=== PATIENT | female | born 1990 | race Caucasian/White ===

== ENCOUNTER 2019-12-01 02:10 | Outpatient (CLI) | payer OTHER, SELFPAY ==
[2019-12-04 15:50] LABS: AFP 59.8 ng/mL; Calculated age at EDD 31 years; Cigarette smoking status non-Smoker; GA used in risk estimate Scan estimate; IVF Pregnancy No; Initial or repeat testing Initial testing; Insulin dependent diabetes No; Maternal Weight 184 lbs; Number of Fetuses 1; Physician Phone Number 802-748-7300; Prev Pregnancy w/NTD No; RECOMMENDED FOLLOW UP None.; Results Summary Normal risk
== END 2019-12-01 02:30 ==
PROVIDERS: Advanced Practice Midwife; Visit Provider Advanced Practice Midwife
DX: Z34.92 Encounter for supervision of normal pregnancy, unspecified, second trimester (principal); Z36.89 Encounter for other specified antenatal screening
CPT/HCPCS: 36415; 82105

== ENCOUNTER 2019-12-01 03:59 | Outpatient (CLI) | payer OTHER, SELFPAY ==
--- NOTE | 2019-12-01 06:15 | DI.US_ITS ---
EXAM: US OB 2-3 TRIMESTER CLINICAL HISTORY: 18 wk anatomy survey,z34.90. TECHNIQUE: Transabdominal obstetrical ultrasound performed. COMPARISON: No exams were available for comparison FINDINGS: Transabdominal obstetrical ultrasound performed. FINDINGS: Number of fetuses: One. position: Variable. heart rate: 144 bpm. Placental location: Fundal no evidence of previa. BIOMETRIC DATA: EFW: 251 grms Composite Age: 18 weeks 4 days EDC: 04/29/2020 Heart Rate: 144BPM Amniotic fluid index: Amount of fluid is within normal limits. ANATOMICAL SURVEY: Within normal limits. BPD: 4.1cm HC: 15.7cm AC: 13.4cm FL: 2.8cm Cisterna Magna: 3.6 mm Cerebellum: 1.8 cm IMPRESSION: 1. Single live intrauterine gestation as above. 2. No abnormalities identified sonographically on the anatomic survey. DATA REPOSITORY:
== END 2019-12-01 04:19 ==
PROVIDERS: Visit Provider Advanced Practice Midwife
DX: Z34.92 Encounter for supervision of normal pregnancy, unspecified, second trimester (principal)
CPT/HCPCS: 76805

== ENCOUNTER 2020-02-05 03:21 | Outpatient (CLI) | payer OTHER, SELFPAY ==
[2020-02-05 15:06] LABS: Glucose,1 Hr (Glucola) 130 mg/dL (80-140)
[2020-02-05 15:12] LABS: HCT 35.7 % (36.0-46.0); HGB 11.8 g/dL (11.2-15.7); MCH 29.5 pg (27.0-33.0); MCHC 33.1 % (32.0-36.0); MCV 89.3 fL (80-95); MPV 9.9 fL (8.0-11.0); Platelet Count 310 10^3/uL (130-400); RDW 13.3 % (11.7-14.6); RDW-SD 43.4 fL; WBC 12.69 10^3/uL (4.4-10.8)
== END 2020-02-05 03:41 ==
PROVIDERS: Visit Provider Advanced Practice Midwife
DX: Z34.93 Encounter for supervision of normal pregnancy, unspecified, third trimester (principal); Z3A.28 28 weeks gestation of pregnancy
CPT/HCPCS: 82950; 85027; 86850; 86900; 86901

== ENCOUNTER 2020-04-04 11:08 | Outpatient (CLI) | payer OTHER, MEDICAID, SELFPAY ==
[2020-04-04 11:10] VITALS: BP 131/87; PULSE 83; TEMP 37
[2020-04-04 11:15] VITALS: BP 131/87; PULSE 83; TEMP 37
[2020-04-04 11:35] VITALS: BP 131/87; PULSE 83
[2020-04-04 12:37] VITALS: BP 151/95; PULSE 81
[2020-04-04 13:09] LABS: HCT 36.8 % (36.0-46.0); HGB 12.3 g/dL (11.2-15.7); MCH 29.2 pg (27.0-33.0); MCHC 33.4 % (32.0-36.0); MCV 87.4 fL (80-95); MPV 10.9 fL (8.0-11.0); Platelet Count 313 10^3/uL (130-400); RBC 4.21 10^6/uL (3.93-5.22); RDW 13.3 % (11.7-14.6); RDW-SD 42.3 fL; WBC 13.63 10^3/uL (4.4-10.8)
[2020-04-04 13:25] LABS: PROTEIN < 6.0 mg/dL
[2020-04-04 13:25] LABS: ALT 10 U/L (14-59); AST 10 U/L (15-37); Albumin 2.5 g/dL (3.4-5.0); Alkaline Phosphatase 120 U/L (46-116); Anion Gap 9.8 mmol/L (3-11); BUN 7 mg/dL (7-18); Bilirubin, Total 0.2 mg/dL (0.2-1.0); CO2 23.2 mmol/L (21.0-32.0); CREATININE 0.8 mg/dL (0.55-1.02); Calcium 9.4 mg/dL (8.5-10.1); Chloride 102 mmol/L (98-107); Glucose 85 mg/dL (74-106); Potassium 3.9 mmol/L (3.5-5.1); Sodium 135 mmol/L (136-145); Total Protein 6.8 g/dL (6.4-8.2); Uric Acid 4.8 mg/dL (2.6-6.0)
--- NOTE | 2020-04-04 13:25 | W.OBNST ---
Date of service: 04/04/20 Time of Service: 13:27 NST Evaluation Reason for NST Reasons for Nonstress Test: GESTATIONAL HYPERTENSION Gestational Age Gestational Age in Weeks and Days: 36 Weeks and 3Days Test and Monitor Explained Test/Monitor Explained: Test Explained, Monitor Explained and Patient Verbalized Understanding Vital Signs Blood Pressure: 131/87 Pulse: 83 Temperature: 98.6 F NST Information Date on Monitor: 04/04/20 Time on Monitor: 11:10 Date off Monitor: 04/04/20 Time off Monitor: 13:10 Total Time on Monitor: 120 NST Interventions: PO Hydration NST Evaluation Patient States Movement: Present FHR Baseline: 140 Variability: Moderate 6-25 bpm Accelerations: 15x15 Decelerations: None NST Results: Reactive Note NST Note Note: NST done following office visit today due to elevated BP times 2. Highest BP in office 136/90. Denies symptoms. Pre-eclampsia labs drawn and are pending. NST is reactive and reassuring, CAT I baseline 140's. If labs are normal will discharge to home to follow up in 1 week in office Have reviewed signs and symptoms of pre-eclamspia and patient verbalizes understanding. NST Reviewed and Verified by: Zuleika Anna
[2020-04-04 13:27] VITALS: BP 131/87; PULSE 83; TEMP 37
[2020-04-04 13:27] LABS: COMMENT (LAB VIEW ONLY) 42.95 mg/dL
== END 2020-04-04 14:00 ==
LOC: BCD 11:09 → OBS 11:14
PROVIDERS: Advanced Practice Midwife; Visit Provider Advanced Practice Midwife
DX: O13.3 Gestational [pregnancy-induced] hypertension without significant proteinuria, third trimester (principal); Z3A.36 36 weeks gestation of pregnancy
CPT/HCPCS: 59025; 36415; 80053; 85027; 82565; 84156; 84550; 87081

== ENCOUNTER 2020-04-12 16:37 | Outpatient (REF) | payer OTHER, MEDICAID, SELFPAY ==
[2020-04-12 17:52] LABS: *AMPHETAMINES SCREEN URINE Negative (Negative); *BARBITURATES SCREEN URINE Negative (Negative); *BENZODIAZEPINES SCREEN URINE Negative (Negative); Cannabinoids THC Negative (Negative); Cocaine Screen,Urine Negative (Negative); METHADONE URINE SCREEN Negative (Negative); OPIATES URINE SCREEN Negative (Negative)
[2020-04-12 18:39] LABS: Tricyclic Antidepressants Negative (Negative)
[2020-04-19 06:44] LABS: Buprenorphine Negative ng/mL (Cutoff: 5.0); Norbuprenorphine Negative ng/mL (Cutoff: 2.5)
== END 2020-04-12 16:38 | disposition home or self-care (01) ==
LOC: LBN 16:37
PROVIDERS: Visit Provider Advanced Practice Midwife
DX: Z34.93 Encounter for supervision of normal pregnancy, unspecified, third trimester (principal)
CPT/HCPCS: 80307

== ENCOUNTER 2020-04-29 11:13 | Observation (INO) | payer OTHER, MEDICAID, SELFPAY ==
[2020-04-29] VITALS (8 sets, daily range): BP systolic 136–154; BP diastolic 83–104; PULSE 79–96; TEMP 36.6
[2020-04-29 10:19] LABS: HCT 38.6 % (36.0-46.0); HGB 12.6 g/dL (11.2-15.7); MCH 28.7 pg (27.0-33.0); MCHC 32.6 % (32.0-36.0); MCV 87.9 fL (80-95); MPV 10.6 fL (8.0-11.0); Platelet Count 315 10^3/uL (130-400); RBC 4.39 10^6/uL (3.93-5.22); RDW 13.6 % (11.7-14.6); RDW-SD 43.6 fL; WBC 13.11 10^3/uL (4.4-10.8)
[2020-04-29 10:32] LABS: ALT 8 U/L (14-59); AST 8 U/L (15-37); Albumin 2.5 g/dL (3.4-5.0); Alkaline Phosphatase 131 U/L (46-116); BUN 6 mg/dL (7-18); Bilirubin, Total 0.2 mg/dL (0.2-1.0); CREATININE 0.8 mg/dL (0.55-1.02); Calcium 8.7 mg/dL (8.5-10.1); Chloride 102 mmol/L (98-107); Glucose 102 mg/dL (74-106); Potassium 4.1 mmol/L (3.5-5.1); Sodium 135 mmol/L (136-145); Total Protein 6.6 g/dL (6.4-8.2); Uric Acid 5.8 mg/dL (2.6-6.0)
[2020-04-29 11:12] LABS: PROTEIN < 6.0 mg/dL
[2020-04-29 11:13] LABS: COMMENT (LAB VIEW ONLY) 28.38 mg/dL
--- NOTE | 2020-04-29 11:14 | W.OBNST ---
Date of service: 04/29/20 Time of Service: 11:14 NST Evaluation Reason for NST Reasons for Nonstress Test: GESTATIONAL HYPERTENSION Gestational Age Gestational Age in Weeks and Days: 40 Weeks and 0Days Test and Monitor Explained Test/Monitor Explained: Test Explained, Monitor Explained and Patient Verbalized Understanding Vital Signs Blood Pressure: 144/100 Pulse: 87 Temperature: 97.9 F NST Information Date on Monitor: 04/29/20 Time on Monitor: 09:06 NST Evaluation Patient States Movement: Present FHR Baseline: 150 Variability: Moderate 6-25 bpm Accelerations: 15x15 Decelerations: None NST Results: Reactive Note NST Note NST Reviewed and Verified by: Scarlett Rosales
--- NOTE | 2020-04-29 12:32 | HPE_ITS ---
Date of service: 04/29/20 Time of Service: 12:32 Assessment and Plan Assessment and plan (1) Elevated blood pressure affecting in third trimester, antepartum: Status: Acute Assessment and plan: A: primipara, 40 wek EGA gestational HTN without severe features reactive NST P: Will admit pt later today for IOL via cervical ripening Consult with Dr. Brandon (2) History of anxiety: Status: Acute OB-HPI Labor/Delivery History of Present Illness Reason for Visit: R/O GESTATIONAL HTN Chief Complaint: Signs/Symptoms Gestational HTN , Associated Signs and Symptoms of GestationalHTN: elevated BP noted during office visit today, pt to for serial BP's, NST and labs. Pt denies WHITE or abd pain, no nausea or vomiting.. HANDY Calculator Estimated Delivery Date Method Current WG Current Estimate 04/29/20 Ultrasound #1 40w 0d History of Present Expected Delivery Route/Plan - CNM FOB/ - Perry Whitley (first child) Doesn't want to know gender, Bam if boy, Birdie if girl If a boy, yes to circ considering nitrous oxide, hopes to avoid epidural if possible GBS negative Interested in immediate Nexplanon Specific Issues/Plan 1. Hx PCOS/Infertility -Metformin started & conception occurred, on metformin until 12 weeks, early GTT at 14 cumum=440 1a. 1-hr GTT 130 2. lab results noted in first PN narrative note below 3. Single marker AFP = low risk for NTD 4. Elevated BP affecting care of Mother in third trimester, NST and pre- eclampsia labs 04/04/20 4a. Labs were nml, BP at 39 wk check is nml, no sx Review of Systems All systems reviewed & are unremarkable except as noted in HPI and below Constitutional Constitutional: Reports as per HPI and Reports system reviewed and no additional complaints, except as documented PFS Medical History (Updated 04/04/20 @ 11:02 by Zuleika Anna CNM) Essential hypertension Diagnosed 2018 - resolved with weight loss History of anxiety no meds or counseling Irregular menstruation, unspecified (09/05/13) PCOS (polycystic ovarian syndrome) Surgical History (Updated 11/20/19 @ 13:18 by Zuleika Hanna CNM) History of hip surgery Family History (Updated 09/14/20 @ 13:29 by Zuleika Hanna CNM) Mother Hypothyroid Kidney disease Father Hypertension Myocardial infarct stent placed Maternal Grandmother Diabetes Maternal Grandfather Heart disease Paternal Grandmother Heart disease Social History Smoking risk assessment performed?: No History History 1 Para 0 Hx # Term Pregnancies 0 Multiple births 0 Hx # Pregnancies 0 Ectopic pregnancies 0 AB induced 0 Hx Number of Living Children 0 AB spontaneous 0 Meds Home Medications and Allergies Home Medications Medication Instructions Recorded Confirmed Type acetaminophen 500 mg capsule 500 mg PO Q6H PRN 11/22/19 03/20/20 History prenat.vits,amira,sbn-gokg-evsbs 1 tab PO DAILY 11/22/19 03/20/20 History ferrous sulfate 325 mg (65 mg 325 mg PO DAILY #30 tab 01/24/20 03/20/20 Rx iron) tablet Allergies Allergy/AdvReac Type Severity Reaction Status Date / Time No Known Drug Allergies Allergy Unverified 04/29/20 08:24 Exam Physical Exam Vital signs: Pulse BP 94 H 154/104 H 04/29/20 11:11 04/29/20 11:11 Vital Signs Reviewed: Yes Notable Details: elevated BP's while in BC x4 Constitutional Constitutional: no acute distress Detailed Labor and Delivery Exam Dilation: 0.5 Effacement (%): 50 station: -3 Cervix position: posterior Consistency: soft Stacy Score: Cervical Points Exam 0 1 2 3 Dilation Closed 1-2cm 3-4 cm 5-6cm Effacement 0-30% 40-50% 60-70% 80% Consistency Firm Medium Soft Station -3 -2 -1,0 +1,+2 Position Posterior Mid Anterior STACY Score(Cervical Ripeness Score): 3 Amniotic Membrane Status: Intact Fetus A Heart Rate Baseline: 140 Monitor Accelerations: 15 X 15 Monitor Decelerations: None Variability: Moderate (6-25 BPM) Presentation: Cephalic Categories: Category I HEENT Exam HEENT Exam: Normal Neck Exam Neck Exam: Normal Chest/Brest/Axilla Exam Chest Exam: Normal Breast Exam Breast Exam: Normal Respiratory Exam Respiratory Exam: Normal Cardiovascular Exam Cardiovascular Exam: Normal Abdominal Exam Abdominal Exam: Normal Rectal Exam Rectal Exam: Not Done Exam Exam: Normal Back/Spine/Pelvis Exam Back Exam: Normal Skin Exam Skin Exam: Normal Neurological Exam Neurological Exam: Normal Psychiatric Exam Psychiatric Exam: Normal (anxious) Results Abnormal Lab Findings: Abnormal Labs 04/29/20 04/29/20 10:08 10:08 WBC 13.11 H Sodium 135 L BUN 6 L AST 8 L ALT 8 L Alkaline Phosphatase 131 H Albumin 2.5 L Risk Assessment Risk for Shoulder Dystocia Historical/Initial OB: NEGATIVE FOR: Pelvic Abnormality, Pre- BMI>30, Previous Shoulder Dystocia or Previous Macrosomia Increased Risk?: No Risk for Pre-Eclampsia Daily Dose ASA Indicated: No Yes, if one or more: NEGATIVE FOR: Hx Pre-E/Gest HTN, Chronic HTN, Multiple Gestation, Pre-gestational DM, Renal Disease, Systemic Lupus or APA Syndrome Yes, if 2 or more: POSITIVE FOR: Nulliparity; NEGATIVE FOR: Age>= 35 yrs, >10yr btwn pregnancies, BMI>30, ethinicty, Mother/Sister w/ Pre-E or Previous IUGR Risk for Post- Hemorrhage Initial: NEGATIVE FOR: Multiple Gestation, Previous PPH, Known Clotting Deficiency, Grand Multiparity or Anticoagulation At Risk?: No Risks Reviewed Risks Reviewed Upon Admission: Yes
== END 2020-04-29 12:30 | disposition home or self-care (01) ==
LOC: OBS 12:10 → BCD 12:39
PROVIDERS: Admitting Provider Advanced Practice Midwife; Visit Provider Advanced Practice Midwife
DX: O13.3 Gestational [pregnancy-induced] hypertension without significant proteinuria, third trimester (principal); O99.343 Other mental disorders complicating pregnancy, third trimester; Z3A.40 40 weeks gestation of pregnancy; O99.283 Endocrine, nutritional and metabolic diseases complicating pregnancy, third trimester; E28.2 Polycystic ovarian syndrome
CPT/HCPCS: 59025; 36415; 80053; 85027; 86850; 86900; 86901; 99211; 82565; 84156; 84550; G0378

== ENCOUNTER 2020-04-29 15:00 | Inpatient (IN) | payer OTHER, MEDICAID, SELFPAY ==
[2020-04-29 15:13] VITALS: BP 126/85; PULSE 116; RESP 18; TEMP 36.7
[2020-04-29] MEDS: miSOPROStol 25 MCG TAB 50 MCG PO ×2 (15:42→20:03)
[2020-04-29 16:49] LABS: Influenza A PCR Negative (Negative); Influenza B PCR Negative (Negative); RSV PCR Negative (Negative)
[2020-04-29 16:56] LABS: COVID-19 PCR Negative (Negative)
[2020-04-29 17:24] VITALS: BP 135/91; PULSE 90; RESP 18; TEMP 36.8
[2020-04-29 19:38] VITALS: BP 118/67; PULSE 99; RESP 18; TEMP 36.6
--- NOTE | 2020-04-29 20:30 | W.PM.OBNL1 ---
Date of service: 04/29/20 Time of Service: 20:30 Informed Consent Informed Consent: Induction of Labor and Risk,Benefits,Alternatives Discussed Pelvic Exam Dilation: 1 Effacement (%): 80 station: -2 Cervix Position: mid Consistency: soft Vaginal Exam Presentation: Cephalic Contractions Monitor Mode: External Contraction Frequency(min): irregular Intensity: Mild Fetus A Monitor: External (US) Heart Rate Baseline: 145 Presentation: Cephalic Variability: Moderate (6-25 BPM) Categories: Category I Accelerations: 15 X 15 Decelerations: None Amniotic Membrane Status: Intact Assessment and Plan Assessment and plan (1) Elevated blood pressure affecting in third trimester, antepartum: Status: Acute (2) Elective induction of labor planned: Status: Acute Assessment and plan: A: Primipara, IOL via cervical ripening Gestational HTN, stable Latent phase, tolerating PO fluids well P: 2nd dose of misoprostel 25 mcg now Will hold further doses for the night Expectant management Anticipate (3) 40 weeks gestation of : Status: Acute Objective Temp Pulse Resp BP 97.9 F 99 H 18 118/67 04/29/20 19:38 04/29/20 19:38 04/29/20 19:38 04/29/20 19:38 Laboratory Results COVID-19 Source Nasopharyx 04/29/20 15:30 SARS-CoV-2 (PCR) Negative (Negative) 04/29/20 15:30 Influenza Type A (PCR) Negative (Negative) 04/29/20 15:30 Influenza Type B (PCR) Negative (Negative) 04/29/20 15:30 RSV (PCR) Negative (Negative) 04/29/20 15:30 Vital Signs Reviewed: Yes Objective Narrative Objective Narrative: Normotensive, afebrile FOB at bedside for support Category 1 tracing Minor cervical change palpable to 1/80% vtx -2 Subjective Interval history since last seen: lower abd cramps with back pain, not consistent, position changes help Interventions Induction Indication: Gestational Hypertension , Type of Induction: Misoprostol administration: Oral , Procedure Procedures: Cervical Ripening Cervical Ripening: Misoprostol
[2020-04-29] MEDS: Fluconazole 100 MG TAB 150 MG PO (21:19)
[2020-04-29 22:01] VITALS: BP 139/91; PULSE 88; RESP 18
[2020-04-30] VITALS (40 sets, daily range): BP systolic 78–147; BP diastolic 43–96; PULSE 0–180; RESP 18–20; TEMP 36.6–37; O2SAT 97–100
--- NOTE | 2020-04-30 03:39 | W.PM.OBNL1 ---
Date of service: 04/30/20 Time of Service: 03:40 Pelvic Exam Dilation: 2 Effacement (%): 90 station: -2 Cervix Position: mid Consistency: soft Vaginal Exam Presentation: Cephalic Pooling: Positive Contractions Monitor Mode: External Contraction Frequency(min): doubling every 5-7 minutes Intensity: Mild/Moderate Fetus A Monitor: External (US) Heart Rate Baseline: 135 Variability: Moderate (6-25 BPM) Categories: Category I Accelerations: 15 X 15 Decelerations: Early Amniotic Membrane Status: Ruptured Rupture Method: Spontaneous Amniotic Fluid: Clear Amount: large Date of Membrane Rupture: 04/30/20 Time of Membrane Rupture: 03:00 Assessment and Plan Assessment and plan (1) 40 weeks gestation of : Status: Acute (2) Elective induction of labor planned: Status: Acute Assessment and plan: A: IOL for Gest HTN Latent phase labor @ 1-2 cm dilation, SROM Category 1 tracing Good maternal coping though anxious P: Pt offered nitrous, Discussed R&B regional anesthesia when labor increases to active phase Expectant management, comfort measures as needed (3) Elevated blood pressure affecting in third trimester, antepartum: Status: Acute Objective Vital Signs Reviewed: Yes Objective Narrative Objective Narrative: Category 1 tracing SROM clear confirmed visually Minimal cervical change at this time Pt breathing well with contractions, expresses anxiety about pain BP stable, running 13-140's over 80's- 90's Subjective Interval history since last seen: Was relaxing and drifting off to sleep when she felt a pop and water began coming out, contractions since then have been stronger
[2020-04-30] MEDS: Lactated Ringers 500 ML IV (05:20)
[2020-04-30] MEDS: fentaNYL 100 MCG/2 ML VIAL 25 MCG IVP (06:10)
[2020-04-30] MEDS: fentaNYL 100 MCG/2 ML VIAL EP (06:40)
[2020-04-30] MEDS: Bupivacaine 0.25% Pres-Free 10 ML VIAL EP (06:41)
[2020-04-30] MEDS: FentaNYL/ROPIvacaine 2 mcg/ml and 0.1% 200 ML CADD Cassette EP (06:56)
[2020-04-30] MEDS: Oxytocin/Normal Saline 30 UNIT/500 ML BAG 2 UNITS IV (07:34)
[2020-04-30] MEDS: Lactated Ringers 1,000 ML 125 ML IV (07:34)
--- NOTE | 2020-04-30 09:46 | W.PM.OBNL1 ---
Date of service: 04/30/20 Time of Service: 09:46 Pelvic Exam Dilation: 6 Effacement (%): 100 station: -1 Position: ROP Cervix Position: anterior Consistency: soft Vaginal Exam Presentation: Cephalic Contractions Monitor Mode: External Contraction Frequency(min): every 2-4 minutes Contraction Duration(sec): 60-80 seconds Intensity: Moderate/Strong Fetus A Monitor: External (US) Heart Rate Baseline: 135 Presentation: Cephalic Variability: Moderate (6-25 BPM) Categories: Category I Accelerations: 15 X 15 Decelerations: Early Recurrence: Intermittent Amniotic Membrane Status: Ruptured Rupture Method: Spontaneous Amniotic Fluid: Clear Date of Membrane Rupture: 04/30/20 Time of Membrane Rupture: 03:00 Assessment and Plan Assessment and plan (1) Elevated blood pressure affecting in third trimester, antepartum: Status: Acute (2) Elective induction of labor planned: Status: Acute Assessment and plan: A: Active labor, primipara Gest HTN, stable Epidural anesthesia Pitocin augmentation P: Continue current management Dr. Madison updated on current status Anticipate Objective Vital Signs Reviewed: Yes Objective Narrative Objective Narrative: BP's remain stable Pt pleased with epidural Category 1 tracing, clear fluid Cvx change to 6/100% vtx ROP @ -1 Subjective Patient Reports: No new Complaints Interval history since last seen: Comfortable with epidural
--- NOTE | 2020-04-30 11:14 | W.PM.OBNL1 ---
Date of service: 04/30/20 Time of Service: 11:14 Informed Consent Informed Consent: Induction of Labor and Risk,Benefits,Alternatives Discussed Pelvic Exam Dilation: 10 station: +2 Position: REDD Contractions Monitor Mode: External Intensity: Moderate/Strong Fetus A Monitor: External (US) Heart Rate Baseline: 150 Presentation: Cephalic Variability: Moderate (6-25 BPM) Categories: Category II Decelerations: Variable Recurrence: Recurrent Amniotic Membrane Status: Ruptured Assessment and Plan Assessment and plan (1) Elective induction of labor planned: Status: Acute Assessment and plan: A: 2nd stage labor Category 2 tracing due to variable decels P: FSE placed, Dr. Madison notified of tracing category change 2nd stage huddle held, begin maternal pushing efforts Objective Vital Signs Reviewed: Yes Subjective Interval history since last seen: increasing vaginal and rectal pressure
[2020-04-30] MEDS: Oxytocin/Normal Saline 30 UNIT/500 ML BAG 95 UNITS IV (12:00)
--- NOTE | 2020-04-30 12:23 | W.PM.OBNL1 ---
Date of service: 04/30/20 Time of Service: 11:20 Fetus A Monitor: External (US) Heart Rate Baseline: 160 Presentation: Cephalic Variability: Moderate (6-25 BPM) Categories: Category II Decelerations: Variable (to 65 bpm rogelio) Recurrence: Recurrent Amniotic Membrane Status: Ruptured Assessment and Plan Assessment and plan (1) Elective induction of labor planned: Status: Acute Assessment and plan: A: 2nd stage with delivery not imminent ROT/REDD @ +3, directly behind pubic arch Maternal pushing efforts are strong, epidural in effect Category 2 tracing with recurrent deep variables P: Dr. Madison paged to room to evaluate for operative delivery Objective Vital Signs Reviewed: Yes Objective Narrative Objective Narrative: epidural fairly dense, pt can feel increase in pressure when contraction begins category 2 tracing, deep variables with each contraction to rogelio of 60's Fetus in ROT/REDD position behind pubic arch, delivery not imminent
--- NOTE | 2020-04-30 12:56 | W.OBDELIVERY ---
Date of service: 04/30/20 Time of Service: 12:56 OB Labor/ Delivery Information Providers Doctor: Rubi Madison Nurse General Studies Program Chair: Scarlett Rosales Knitting Machine Operator Helper: Jane Cole Nurse: Azalea Alcaraz Nurse: Law Vincent Labor/Delivery Information Number of Babies in Womb: 1 Steroids Given: None Reason Steroids Not Administered: N/A Group Beta Strep: Negative Rubella Status: Immune Blood Type: A+ Varicella Immunity: Immune Shoulder Dystocia: No Note: Kindly asked by Scarlett Rosales CNM to evaluate labor progress of this 30-year-old primigravida. She had been induced with cervical ripening with misoprostol for gestational hypertension. Spontaneous rupture of membranes for clear fluid approximately 3 AM. She progressed through a normal course of labor and received epidural for pain control. She was completely dilated and pushing with adequate maternal effort. There is noted to be deep decelerations of the heart rate to the 60s after scalp lead placement with contractions. These are somewhat prolonged into approximately the 2-minute range with good return to baseline and moderate variability. On evaluation, she was noted to be complete and +2 station with the vertex in the right occiput anterior position. Due to maternal pushing efforts and repetitive decelerations decision was made for vacuum-assisted vaginal delivery. Verbal consent was obtained. Her bladder was drained for approximately 100 cc of clear yellow urine. Initial vacuum placement was with acutely and with maternal effort maximum pressure of 20 mmHg and the vacuum device was used. With good maternal effort there was noted to be 1 pop off. Evaluation of heart rate after this maternal pushing effort, heart rate was noted to be in the 160s with moderate variability. She continued to have somewhat deep decelerations with contraction efforts over approximately 6 additional contractions. At this point as the vertex was noted again vacuum device was placed at a maximum pressure of 20 mmHg. With good maternal effort the vertex was delivered underneath the pubic arch and released from pressure. Shoulders followed with ease. There is no evidence of nuchal cord noted and three-vessel cord is noted and the was handed off to the waiting mother and father. At this point after cord pulsations had diminished, cord was clamped, cut and cord blood sample and cord blood gases were both obtained. Placenta delivered spontaneously and was found to be intact. As of note there was a approximately 50 cc dark adherent clot to the lateral aspect of the placenta which may have indicated a marginal placental abruption. Patient received Pitocin for uterine tonicity. On inspection of the perineum, vagina, and cervix are noted to be a right and left vaginal sidewall laceration which were repaired with 3-0 Vicryl suture in a running locked fashion and found to be hemostatic. The perineum was intact. There is no evidence of cervical laceration. Lower uterine segment was swept clear of all clot and debris and the uterus was firm and approximately 2 cm below the umbilicus postdelivery. Findings of the delivery and maternal efforts along with vacuum assistance were all explained to the patient and her after delivery. is in stable condition resting comfortably skin to skin with mom. Weight and Apgars to follow. Stages of Labor ROM Baby A: 04/30/20 ROM Baby A: 03:00 ROM Total Time- Baby A: [id number] Infant Delivery Date-Baby A: 04/30/20 Infant Delivery Time-Baby A: 11:51 Placenta Delivery Date-Baby A: 04/30/20 Placenta Delivery Time-Baby A: 11:58 Labor-Stage 3 Duration: 7 minutes Placenta Cultured: No Placenta Status: Delivered Baby A Gender: Female Gestational Status: Term (39-41.6 wks) Gestational Age in Weeks/Days: 40 Weeks and 1 Days Score-1 Minute Interval(Baby A) Heart Rate-1 minute: 100 BPM or Greater Respiratory Effort- 1 minute: Spontaneous/Strong Cry Muscle Tone-1 minute: Active Movement Reflex Response-1 minute: Prompt Response Color-1 minute: Pallor or Cyanosis Total Score-1 minute: 8 Score-5 Minute Interval(Baby A) Heart Rate- 5 minute: 100 BPM or Greater Respiratory Effort-5 minute: Spontaneous/Strong Cry Muscle Tone-5 minute: Active Movement Reflex Response-5 minute: Prompt Response Color-5 minute: Bluish Hands or Feet Total Score- 5 minute: 9
[2020-04-30] MEDS: Docusate Sodium 100 MG CAP PO (18:04)
[2020-04-30] MEDS: Ibuprofen 600 MG TAB PO (18:04)
[2020-04-30] MEDS: Acetaminophen 325 MG TAB 650 MG PO (18:04)
[2020-05-01 04:00] VITALS: BP 115/78; PULSE 88; RESP 18; TEMP 36.7
[2020-05-01 06:31] VITALS: BP 147/84; PULSE 88; RESP 18
[2020-05-01 06:44] LABS: HCT 31.5 % (36.0-46.0); HGB 10.3 g/dL (11.2-15.7); MCH 28.9 pg (27.0-33.0); MCHC 32.7 % (32.0-36.0); MCV 88.5 fL (80-95); MPV 10.5 fL (8.0-11.0); Platelet Count 272 10^3/uL (130-400); RBC 3.56 10^6/uL (3.93-5.22); RDW 13.8 % (11.7-14.6); RDW-SD 44.4 fL; WBC 17.22 10^3/uL (4.4-10.8)
[2020-05-01] MEDS: Acetaminophen 325 MG TAB 650 MG PO ×2 (08:23→14:26)
[2020-05-01 08:30] VITALS: BP 116/78; PULSE 87; RESP 18; TEMP 36.8
--- NOTE | 2020-05-01 09:39 | W.PM.OBPNV1 ---
Date of service: 05/01/20 Time of Service: 09:39 Assessment and Plan Assessment and plan (1) care following vaginal delivery: Status: Acute Assessment and plan: continue present management, likely to be discahrged to home tomorrow.JORJE (2) Status post vacuum-assisted vaginal delivery: Status: Acute Assessment and plan: doing well. JORJE Subjective Subjective Interval history: Patient reported to [facility] this morning that she is doing well. Out of bed without difficulty. JORJE Patient comments: Pain well controlled and Tolerating diet [place] baby status: Doing well Exam Physical Exam Vital signs: Temp Pulse Resp BP Pulse Ox 98.2 F 87 18 116/78 100 05/01/20 08:30 05/01/20 08:30 05/01/20 08:30 05/01/20 08:30 04/30/20 23:55 Vital Signs Reviewed: Yes Constitutional Constitutional: no acute distress and obese HEENT Exam HEENT Exam: Normal Neck Exam Neck Exam: Not Done Respiratory Exam Respiratory Exam: Normal Cardiovascular Exam Cardiovascular Exam: Normal Fundal Exam Fundus: Below Umbilicus and Firm Rectal Exam Rectal Exam: Not Done Exam Patient deferred: external exam Perineum: Repair Intact Extremities Exam Extremity Exam: Normal Neurological Exam Neurological Exam: Normal Psychiatric Exam Psychiatric Exam: Normal Results Hemoglobin/Hematocrit: Hgb 10.3 g/dL (11.2-15.7) L D 05/01/20 06:30 Hct 31.5 % (36.0-46.0) L 05/01/20 06:30 Abnormal Lab Findings: Abnormal Labs 05/01/20 06:30 WBC 17.22 H RBC 3.56 L Hgb 10.3 L D Hct 31.5 L
[2020-05-01] MEDS: Ibuprofen 600 MG TAB PO (14:26)
[2020-05-01 20:00] VITALS: BP 119/79; PULSE 79; RESP 18; TEMP 36.7
[2020-05-02] MEDS: Ibuprofen 600 MG TAB PO (07:11)
[2020-05-02 08:00] VITALS: BP 145/91; PULSE 81; RESP 18; TEMP 36.7; O2SAT 99
[2020-05-02 09:06] VITALS: BP 132/90; PULSE 80; RESP 18; O2SAT 98
--- NOTE | 2020-05-02 09:49 | W.PM.OBDISCH ---
Date of service: 05/02/20 Time of Service: 09:49 DS: Diagnosis Discharge Diagnosis (1) care following vaginal delivery: Status: Acute (2) Status post vacuum-assisted vaginal delivery: Status: Acute Discharge Plan Disposition Patient Disposition: HOME Condition: Good Discharge Details Reason For Visit: GESTATIONAL HTN AT 40 WKS Admit Date/Time: 04/29/20 15:00 Admit Provider: Scarlett Rosales Attending Provider: Scarlett Rosales Primary Care Provider: Unknown,Unknown Hospital Course Hospital Course: Vacuum assisted vaginal delivery and routine PP care: [place] as below: Delivery Summary PATIENT NAME: ORALIA PATEL #: [id number] ADMITTING PROVIDER: Rubi MadisonUNT #: [id number] PRIMARY CARE PROVIDER:UNKNOWN,UNKNOWN DATE OF ADMIT: 04/29/20 : 1990 Date of service: 04/30/20 Time of Service: 12:56 OB Labor/ Delivery Information Providers Doctor: Rubi Madison Nurse Archery Equipment Repairer: Scarlett Rosales Co Chairman: Jane Cole Nurse: Azalea Alcaraz Nurse: Law Vincent Labor/Delivery Information Number of Babies in Womb: 1 Steroids Given: None Reason Steroids Not Administered: N/A Group Beta Strep: Negative Rubella Status: Immune Blood Type: A+ Varicella Immunity: Immune Shoulder Dystocia: No Note: Kindly asked by Scarlett Rosales CNM to evaluate labor progress of this 30-year-old primigravida. She had been induced with cervical ripening with misoprostol for gestational hypertension. Spontaneous rupture of membranes for clear fluid approximately 3 AM. She progressed through a normal course of labor and received epidural for pain control. She was completely dilated and pushing with adequate maternal effort. There is noted to be deep decelerations of the heart rate to the 60s after scalp lead placement with contractions. These are somewhat prolonged into approximately the 2-minute range with good return to baseline and moderate variability. On evaluation, she was noted to be complete and +2 station with the vertex in the right occiput anterior position. Due to maternal pushing efforts and repetitive decelerations decision was made for vacuum-assisted vaginal delivery. Verbal consent was obtained. Her bladder was drained for approximately 100 cc of clear yellow urine. Initial vacuum placement was with acutely and with maternal effort maximum pressure of 20 mmHg and the vacuum device was used. With good maternal effort there was noted to be 1 pop off. Evaluation of heart rate after this maternal pushing effort, heart rate was noted to be in the 160s with moderate variability. She continued to have somewhat deep decelerations with contraction efforts over approximately 6 additional contractions. At this point as the vertex was noted again vacuum device was placed at a maximum pressure of 20 mmHg. With good maternal effort the vertex was delivered underneath the pubic arch and released from pressure. Shoulders followed with ease. There is no evidence of nuchal cord noted and three-vessel cord is noted and the was handed off to the waiting mother and father. At this point after cord pulsations had diminished, cord was clamped, cut and cord blood sample and cord blood gases were both obtained. Placenta delivered spontaneously and was found to be intact. As of note there was a approximately 50 cc dark adherent clot to the lateral aspect of the placenta which may have indicated a marginal placental abruption. Patient received Pitocin for uterine tonicity. On inspection of the perineum, vagina, and cervix are noted to be a right and left vaginal sidewall laceration which were repaired with 3-0 Vicryl suture in a running locked fashion and found to be hemostatic. The perineum was intact. There is no evidence of cervical laceration. Lower uterine segment was swept clear of all clot and debris and the uterus was firm and approximately 2 cm below the umbilicus postdelivery. Findings of the delivery and maternal efforts along with vacuum assistance were all explained to the patient and her after delivery. [place] is in stable condition resting comfortably skin to skin with mom. Weight and Apgars to follow. Stages of Labor ROM Baby A: 04/30/20 ROM Baby A: 03:00 ROM Total Time- Baby A: [id number] Delivery Date-Baby A: 04/30/20 Infant Delivery Time-Baby A: 11:51 Placenta Delivery Date-Baby A: 04/30/20 Placenta Delivery Time-Baby A: 11:58 Labor-Stage 3 Duration: 7 minutes Placenta Cultured: No Placenta Status: Delivered Baby A Infant Gender: Female Gestational Status: Term (39-41.6 wks) Gestational Age in Weeks/Days: 40 Weeks and 1 Days Score-1 Minute Interval(Baby A) Heart Rate-1 minute: 100 BPM or Greater Respiratory Effort- 1 minute: Spontaneous/Strong Cry Muscle Tone-1 minute: Active Movement Reflex Response-1 minute: Prompt Response Color-1 minute: Pallor or Cyanosis Total Score-1 minute: 8 Score-5 Minute Interval(Baby A) Heart Rate- 5 minute: 100 BPM or Greater Respiratory Effort-5 minute: Spontaneous/Strong Cry Muscle Tone-5 minute: Active Movement Reflex Response-5 minute: Prompt Response Color-5 minute: Bluish Hands or Feet Total Score- 5 minute: 9 Home Meds and New Rx's Prescriptions: No Action ferrous sulfate [Feosol] 325 mg (65 mg iron) tablet 325 mg PO DAILY Qty: 30 RF: 6 acetaminophen 500 mg capsule 500 mg PO Q6H PRNRF: 0 prenat.vits,amira,[id number] Tablet 1 tab PO DAILY RF: 0 Discharge Instructions Instructions: Hypertension During (GEN), Preeclampsia and Eclampsia After Delivery (GEN) Additional Instructions: will return to office in 1 week for BP check, plan Nexplanon insertion for 2-6 weeks PP. Activity:: Activity as Tolerated Equipment/Supplies:: No Equipment Needed Diet:: As Tolerated Discharge Data Discharge Date/Time-TO BE ENTERED AT DEPARTURE: 05/02/20 09:55 OB:DS Summary Summary Episiotomy Description: None Laceration Description: Sulcus Laceration Extension: Second Degree Contraception Discussed Contraception Discussed: Yes (planning Nexplanon), [place] Infant Gender-Baby A: Female weight: 6 lb 8.764 oz Status at Discharge Functional status at discharge: independent ambulation Overall status at discharge: patient is back to baseline Mental Status: mental status grossly normal Speech and Movement: speech and movement normal Mood: congruent mood Affect: normal affect Exam Physical Exam Vital signs: Temp Pulse Resp BP Pulse Ox 98.1 F 80 18 132/90 98 05/02/20 08:00 05/02/20 09:06 05/02/20 09:06 05/02/20 09:06 05/02/20 09:06 Constitutional Constitutional: no acute distress and obese Comments: feeling well, denies symptoms of PP blues.KH HEENT Exam HEENT Exam: Normal Respiratory Exam Respiratory Exam: Normal Cardiovascular Exam Cardiovascular Exam: Normal Fundal Exam Fundus: Below Umbilicus and Firm Exam Patient deferred: perineal exam Perineum: Normal and Repair Intact Extremities Exam Extremity Exam: Normal Neurological Exam Neurological Exam: Normal Psychiatric Exam Psychiatric Exam: Normal [facility] Medical History (Updated 05/01/20 @ 09:42 by Zuleika Anna CNM) Essential hypertension Diagnosed 2018 - resolved with weight loss History of anxiety no meds or counseling Irregular menstruation, unspecified (09/05/13) PCOS (polycystic ovarian syndrome) Surgical History (Updated 11/20/19 @ 13:18 by Zuleika Hanna CNM) History of hip surgery Family History (Updated 11/20/19 @ 13:29 by Zuleika Hanna CNM) Mother Hypothyroid Kidney disease Father Hypertension Myocardial infarct stent placed Maternal Grandmother Diabetes Maternal Grandfather Heart disease Paternal Grandmother Heart disease Social History Smoking/Tobacco Use Status: Never Smoking risk assessment performed?: Yes Alcohol Intake: former Drug use: Never Substance use type: does not use History History 1 Para 0 Hx # Term Pregnancies 0 Multiple births 0 Hx # Pregnancies 0 Ectopic pregnancies 0 AB induced 0 Hx Number of Living Children 0 AB spontaneous 0 DS: Data Vitals/I&O Vitals and I&O: Vital Signs Temperature 98.1 F 05/02/20 08:00 Pulse 80 05/02/20 09:06 Pulse Rhythm Regular 05/01/20 20:00 Respiratory Rate 18 05/02/20 09:06 Respiratory Depth Normal 04/30/20 23:55 Blood Pressure 132/90 05/02/20 09:06 Blood Pressure Mean 104 05/02/20 09:06 Pulse Oximetry 98 05/02/20 09:06 Oxygen Delivery Method Room Air 04/29/20 15:13 Oxygen Flow Rate 0 04/29/20 15:13 Pain Level 2 05/02/20 08:11 Comment 05/02/20 09:06 Intake & Output 05/01/20 05/01/20 05/02/20 11:59 23:59 11:59 Intake Total 400 / 400 Output Total 900 / 900 Balance -500 / -500 Intake: Oral 400 / 400 Output: Urine 900 / 900 Other: Urine Color Pale
== END 2020-05-02 13:30 | disposition home or self-care (01) | DRG 807 ==
PROVIDERS: Admitting Provider Advanced Practice Midwife; Visit Provider Advanced Practice Midwife
DX: O13.4 Gestational [pregnancy-induced] hypertension without significant proteinuria, complicating childbirth (principal); Z37.0 Single live birth; Z3A.40 40 weeks gestation of pregnancy; O76 Abnormality in fetal heart rate and rhythm complicating labor and delivery
CPT/HCPCS: 85027; J3010; J3490

== ENCOUNTER 2020-07-22 03:19 | Outpatient (CLI) | payer OTHER, MEDICAID, SELFPAY ==
[2020-07-22 13:52] LABS: GTT Comment See Comments
== END 2020-07-22 03:20 | disposition home or self-care (01) ==
LOC: LBO 03:19
PROVIDERS: Visit Provider Obstetrics & Gynecology
DX: E28.2 Polycystic ovarian syndrome (principal)
CPT/HCPCS: 36415; 82951

== ENCOUNTER 2020-12-12 14:20 | Outpatient (REF) | payer OTHER, MEDICAID, SELFPAY | END 2020-12-12 14:21 | disposition home or self-care (01) | LOC: LBN 14:20 | PROVIDERS: Visit Provider Obstetrics & Gynecology | DX: R30.0 Dysuria (principal) | CPT/HCPCS: 87077; 87086; 87186 ==

== ENCOUNTER 2023-11-03 16:23 | Outpatient (REF) | payer BC, SELFPAY | END 2023-11-03 16:24 | disposition home or self-care (01) | LOC: LBN 16:23 | PROVIDERS: Visit Provider Obstetrics & Gynecology | DX: R30.0 Dysuria (principal); N39.0 Urinary tract infection, site not specified | CPT/HCPCS: 87077; 87086; 87186 ==

== ENCOUNTER 2023-12-01 17:34 | Emergency (ER) | payer BC, SELFPAY ==
[2023-12-01 17:36] VITALS: BP 172/93; PULSE 96; RESP 12; TEMP 36.8; O2SAT 98
[2023-12-01 18:16] VITALS: BP 172/93; PULSE 96; RESP 12; RESP 15; TEMP 36.8; O2SAT 98
--- NOTE | 2023-12-01 20:03 | ED.GENADUL_ITS ---
Discharge Plan Disposition Patient Disposition: Home Condition: Stable Discharge Details Clinical Impression: Neck pain on left side, Cervical adenitis Primary Care Provider: Unknown,Unknown ED Provider: Ly Wong Home Meds and New Rx's Prescriptions: No Action fluoxetine 20 mg capsule 20 mg PO DAILY multivitamin Tablet 1 tab PO DAILY acetaminophen 500 mg capsule 500 mg PO Q6H PRN ParaGard T 380A 380 square mm intrauterine device 1 device intrauterine ONCE Qty: 1 0RF Rx Instructions: as a single dose metformin 1,000 mg tablet See Rx Instructions .ROUTE .COMPLEX Qty: 120 0RF Dose Instruction: TAKE 1 TABLET BY MOUTH TWICE DAILY Rx Instructions: TAKE 1 TABLET BY MOUTH TWICE DAILY Discharge Instructions Additional Instructions: Pain likely from reactive lymph nodes after your upper respiratory infection There is no sign of a dental infection, there is no sign of a deep space neck infection Continue Motrin or Tylenol as needed Follow-up with your primary care provider for reevaluation if symptoms worsen HPI General Date/Time Provider Initiated Documentation: 12/01/23 18:01 . Limitations to Documentation: no limitations . Information obtained by: patient . HPI Narrative: 33-year-old female without significant past medical history presents for evaluation of left neck pain. She reports that this has been ongoing for the last 5 days. She reports that she has been having some cold-like symptoms over the preceding 2 weeks. Denies any fever. Reports a very specific location of her pain in the left side of her neck. Not having any signs or symptoms concerning for headache, fever, voice change, difficulty swallowing or breathing. She denies any pain in her tooth or swelling. She reports that she did call her dentist for evaluation of this pain but they told her to come to the emergency department since she was having pain in her neck Related Data Home Medications ?Medication ?Instructions ?Recorded ?Confirmed acetaminophen 500 mg capsule 500 mg PO Q6H PRN 11/22/19 12/01/23 copper 380 square mm intrauterine 1 device intrauterine ONCE #1 ea 05/26/21 12/01/23 device (ParaGard T 380A) metformin 1,000 mg tablet See Rx Instructions .Route 07/13/22 12/01/23 .COMPLEX #120 tabs fluoxetine 20 mg capsule 20 mg PO DAILY 12/25/22 12/01/23 multivitamin 1 tab PO DAILY 11/03/23 12/01/23 Previous Rx's ?Medication ?Instructions ?Recorded copper 380 square mm intrauterine 1 device intrauterine ONCE #1 ea 05/26/21 device (ParaGard T 380A) metformin 1,000 mg tablet See Rx Instructions .Route 07/13/22 .COMPLEX #120 tabs Allergies Allergy/AdvReac Type Severity Reaction Status Date / Time No Known Drug Allergies Allergy Other (See Verified 12/01/23 17:40 Comment) General Stated Complaint: [facility]Medical CARLOS: 4 Exam Narrative Exam Narrative: Review of Systems: All systems reviewed & are unremarkable except as noted in HPI and below Well-developed, no acute distress NCAT PERRL, normal conjunctiva No intraoral lesions, dentition intact, no dental tenderness, floor of mouth is soft, posterior oropharynx without significant tonsillar erythema or exudate There is midline trachea, no thyroid enlargement, minimal shotty cervical adenopathy. I am unable to palpate significantly large lymph nodes. I am unable to locate or feel anything under the pinpoint area that the patient states that her pain is at Speech normal, no stridor, full range of motion of the neck, no meningeal signs RRR Unlabored respiratory effort Course Vital Signs Vital signs: Vital Signs Temperature 36.8 C 12/01/23 17:36 Pulse 96 H 12/01/23 17:36 Respiratory Rate 12 12/01/23 17:36 Blood Pressure 172/93 H 12/01/23 17:36 Pulse Oximetry 98 12/01/23 17:36 Temperature 36.8 C 12/01/23 18:16 Temperature Source Oral 12/01/23 18:16 Pulse 96 H 12/01/23 18:16 Respiratory Rate 15 12/01/23 18:16 Respiratory Effort Normal 12/01/23 18:16 Respiratory Depth Normal 12/01/23 18:16 Respiratory Pattern Normal 12/01/23 18:16 Blood Pressure 172/93 H 12/01/23 18:16 Blood Pressure Position Sitting 12/01/23 18:16 Pulse Oximetry 98 12/01/23 18:16 Oxygen Delivery Method Room Air 12/01/23 18:16 Oxygen Flow Rate 0 12/01/23 17:36 Pain Level 6 12/01/23 17:36 Comment 8 at worse 12/01/23 17:36 Medical Decision Making Emergent evaluation of left lateral neck pain. On my evaluation this seems to be very benign, there is no evidence of intraoral infection or significant adenopathy, patient is noted to be slightly hypertensive, but otherwise does not have significant vital sign abnormality. Repeat vital signs were not obtained by nursing staff. The patient may have some reactive lymphadenopathy from her recent URI, but I do not feel that based on her symptoms that any antibiotic is indicated. She has no meningeal signs or concerns for an RPA or BUS VAN DRIVER. So I do not feel that imaging would be beneficial. She did have some relief with Tylenol and Motrin taken at home and I recommend that she continue this. Follow-up with with PCP for reevaluation of ongoing symptoms. Discharged in good condition. Quality:SDOH Health Related Social Needs: No Data to Display PFSH All Active Problems (Updated 12/01/23 @ 18:02 by Ly Wong MD) Cervical adenitis (Acute) Neck pain on left side (Acute) Essential hypertension (Acute) Diagnosed 2018 - resolved with weight loss PCOS (polycystic ovarian syndrome) (Acute) Medical History (Updated 12/01/23 @ 18:02 by Ly Wong MD) IUD (intrauterine device) in place History of irregular menstrual bleeding History of anxiety no meds or counseling Surgical History History of hip surgery Family History Mother Hypothyroid Kidney disease Father Hypertension Myocardial infarct stent placed Maternal Grandmother Diabetes Maternal Grandfather Heart disease Paternal Grandmother Heart disease Social History Smoking/Tobacco Use Status: Never Smoking risk assessment performed?: Yes Alcohol Intake: former Drug use: Never Substance use type: does not use Housing: house Do you feel safe at home: Yes Do you feel safe in your relationship?: Yes History History 1 Para 1 Hx # Term Pregnancies 1 Multiple births 0 Hx # Pregnancies 0 Ectopic pregnancies 0 AB induced 0 Hx Number of Living Children 1 AB spontaneous 0 Past Pregnancies Del. Date GA/Weeks # Preg Succ Route Wgt Sex Labor Lgth Anesth esia Location [facility] [place] 04/30/20 40 No vaginal Female regional Liam otero MD; AMILCAR Ontiveros Delivery Date: 04/30/20 Last Updated by: Rubi LaBounty, FIRE CONTROL TECHNICIAN B Induced for gestational HTN; Vacuum assisted vag. delivery due to repetitive deceleration,
== END 2023-12-01 18:18 | disposition home or self-care (01) ==
LOC: ER 18:07
PROVIDERS: Emergency Provider Emergency Medicine
DX: M54.2 Cervicalgia (principal); L04.0 Acute lymphadenitis of face, head and neck
CPT/HCPCS: 99283